=== PATIENT | female | born 1950 | race Caucasian/White ===

== ENCOUNTER 2023-10-23 12:28 | Outpatient (CLI) | payer MEDICARE, BC, SELFPAY ==
--- NOTE | 2023-10-23 06:00 | DI.RAD_ITS ---
Exam(s) XR PAIN CLINIC FLUORO JOINT IN EXAM: XR PAIN CLINIC FLUORO JOINT IN CLINICAL HISTORY: DX: Left knee osteoarthritis TECHNIQUE: 2D and realtime digital imaging was performed. CONTRAST MATERIAL: Refer to procedure report. COMPARISON: No exams were available for comparison FINDINGS: Fluoroscopy was provided for Dr. Frey during the performance of a left geniculate radiofrequency abl ation. Please refer to the procedure report for complete details. Ka,r=3.28 mGy IMPRESSION: RADIATION DOSE DELIVERED: 0.0 0.0 0
[2023-10-23 12:40] VITALS: BP 137/67; PULSE 57; RESP 20; TEMP 36.7; O2SAT 97
[2023-10-23] MEDS: fentaNYL 100 MCG/2 ML VIAL IVP (13:40)
[2023-10-23] MEDS: Midazolam 2 MG/2 ML VIAL IVP (13:40)
[2023-10-23] MEDS: Bupivacaine 0.5% Pres-Free 10 ML VIAL IJ (14:28)
[2023-10-23] MEDS: Lactated Ringers 500 ML 80 ML IV (14:28)
[2023-10-23] MEDS: Lidocaine 2% Multi-Dose 20 ML VIAL IJ (14:28)
[2023-10-23] MEDS: methylPREDNISolone ACETATE 40 MG/ML VIAL IJ (14:29)
[2023-10-23] MEDS: Nerve Block Tray 1 EACH MC (14:31)
[2023-10-23 14:32] VITALS: BP 119/62; PULSE 69; RESP 16; O2SAT 100
--- NOTE | 2023-10-23 16:13 | PDOC.PAIN ---
Date of service: 10/23/23 Time of Service: 14:00 Pain Managment Procedure Note Procedure Note Procedure Note: PROCEDURE NOTE LEFT GENICULAR NERVE RADIOFREQUENCY ABLATION Date of Service: October 23, 2023 Patient: Jumana Sneed Provider: Bart Nogueira DO, MPH Jumana Sneed [facility] Left genicular nerve radiofrequency ablation with the Avanos machine. Pre-operative diagnosis: Pain in left knee M25.562 Post-operative diagnosis: Same Pre-Procedure Pain: VAS=5/10 Comments: Previous genicular nerve blocks to the Left knee at by Dr. Whiting - Dr. Whiting referred the patient here for the Genicular nerve ablation with the Avanos machine. PROCEDURE: 1. Superolateral genicular branch from the vastus lateralis 2. Superomedial genicular branch from the vastus medialis 3. Inferomedial genicular branch from the saphenous nerve 4. Terminal branch of the nerve vastus intermedius Jumana was interviewed and the medical record reviewed. There were no medical, pharmacologic, radiographic or other structural contraindications to attempting fluoroscopically guided Left genicular nerve radiofrequency ablation. Risks and potential side effects as well as potential benefit of the procedure were reviewed with Jumana Sneed , and the patient's voiced concerns were addressed. After I believed that the patient was completely informed, the printed consent form was signed. Standard time-out procedure was performed. Jumana Sneed was brought into brought to the procedure room and placed on the fluoroscopy table in a comfortable supine position and automated blood pressure cuff and pulse oximeter applied. A grounding pad was placed on the right ankle. The place for needle placement was obtained by manual palpation with radiographic confirmation. The skin entry points for approaching Left superolateral genicular nerve, the superomedial genicular nerve, nerve of the vastus intermedius and the inferomedial genicular was identified under the most advantageous fluoroscopic view and marked. Following thorough Chlorhexadine preparation of the skin and draping, 1% lidocaine infiltration of the skin entry point and subcutaneous tissues was accomplished using a 1.5 25G needle. Next, the 17G 50 mm radiofrequency cannula needle with a 4mm active tip was advanced to os at the location of the specific nerve roots (4) using fluoroscopic guidance. Next, motor testing was performed and no abnormal findings were found. Next, 1 cc of 2% Lidocaine was injected at each site after negative aspiration. The lesion was then created with 80 degrees Celsius for 2 minutes and 30 seconds each. 1/4 cc of Depo-Medrol (40 mg/cc) was then injected at each site followed by 1 cc of 0.5% Bupivacaine as the needle was withdrawn. There was no unusual discomfort expressed by Jumana. The needles were withdrawn without difficulty. Jumana was observed and was without hemodynamic, neurologic, or allergic reactions.? Fluoroscopic images were digitally archived. Jumana's vital signs were stable throughout the procedure and were as recorded in the docflowsheet by the nursing staff. If given, dosages of intravenous drugs for anxiolysis and analgesia were documented in MAR. POST PROCEDURE EVALUATION: IMPRESSION: 1. Medication given is documented in the MAR 2. Follow up plan: Jumana to contact [facility] as needed. This procedure may be repeated if the patient achieves at least 50% improvement in pain and/or function for at least 6 months. 3. Estimated Blood Loss: <5ml 4. Fluoroscopy time: Documented in the EMR Follow up plans and appointments were discussed with Jumana. Post procedure instruction was given as documented in nursing documentation and having met discharge criteria, Jumana was [facility] from the [facility]. COMMENTS: No apparent complications. Post-procedure pain: VAS= 0/10. Craft WJ1, Lori SJ, Neil JG, Quintin MartinezG, Antonino GROSS, Mindy PH, John JW. Radiofrequency treatment relieves chronic knee osteoarthritis pain: a double-blind randomized controlled trial. Pain. 2010;152(3):481-7. doi: 10.1016/j.pain.2010.09.029. Mishel S1, Rohan ON2, Arnoldo Y3, ?zl?donna P2, Damion U1, Priyank ?m?rl? I. Which one is more effective for the clinical treatment of chronic pain in knee osteoarthritis: radiofrequency neurotomy of the genicular nerves or intra-articular injection? Int J Rheum Dis. 2016 Feb 09. I personally completed the entire procedure. BART NOGUEIRA DO, MPH ABPM&R - Subspecialty board certification in Pain Medicine [facility]
== END 2023-10-23 12:29 | disposition home or self-care (01) ==
PROVIDERS: PCP Anesthesiology; Visit Provider Preventive Medicine Occupational Medicine
DX: M79.662 Pain in left lower leg; M25.562 Pain in left knee
CPT/HCPCS: 64624; 77002; J0665; J1010; J2003; J2250; J3010